=== PATIENT | female | born 1955 | race African-American/Black ===

== ENCOUNTER 2022-05-10 00:16 | Emergency (ER) | payer MEDICAID, OTHER ==
[~2022-05-10] VITALS: Ht 162.6 cm; Wt 77.0 kg
[~2022-05-10 00:16] MED LIST: DEXTL MT
[2022-05-10 03:12] LABS: BASOPHILS % 0.6 % (0.0-2.0); EOSINOPHILS % 3.9 % (0.0-5.0); HEMATOCRIT. 37.3 % (36.0-48.0); HEMOGLOBIN. 12.2 g/dL (12.0-16.0); LYMPHOCYTES % 24.7 % (20.0-50.0); MEAN CORPUSCULAR HEMOGLOBIN 29.4 pg (28.0-32.0); MEAN PLATELET VOLUME 9.2 fl (7.4-10.4); MONOCYTES % 13.6 % (2.0-8.0); NEUTROPHILS % 57.2 % (40.0-76.0); PLATELET 240 x1000/uL (130-400); RED BLOOD CELL COUNT 4.15 mill/uL (4.2-5.4); RED CELL DISTRIBUTION WIDTH 14.6 % (11.6-14.6)
[2022-05-10 03:15] LABS: CHLORIDE 106 mEq/L (98-107)
[2022-05-10 05:00] VITALS: BP 174/93
== END 2022-05-10 06:47 | disposition home or self-care (01) ==
LOC: ER 00:41
DX: R00.2 Palpitations (principal); F41.9 Anxiety disorder, unspecified; I10 Essential (primary) hypertension; E78.5 Hyperlipidemia, unspecified; Z88.2 Allergy status to sulfonamides
CPT/HCPCS: 36415; 80048; 84443; 84481; 84484; 85025; 99283

== ENCOUNTER 2022-11-17 05:39 | Emergency (ER) | payer MEDICARE, OTHER ==
[~2022-11-17] VITALS: Ht 167.6 cm; Wt 69.0 kg
[2022-11-17] MEDS ORDERED: MAGNESIUM/ALUMINUM HYDROXIDE/SIMETHICONE 30ML UDC PO ONE (07:15)
[2022-11-17] MEDS ORDERED: ONDANSETRON 4MG ODT PO ONE (07:15)
[2022-11-17] MEDS ORDERED: FAMOTIDINE 20MG TABLET PO ONE (07:15)
[2022-11-17 07:26] LABS: BASOPHILS % 0.6 % (0.0-2.0); EOSINOPHILS % 4.2 % (0.0-5.0); HEMATOCRIT. 38.4 % (36.0-48.0); HEMOGLOBIN. 12.9 g/dL (12.0-16.0); LYMPHOCYTES % 24.8 % (20.0-50.0); MEAN CORPUSCULAR HEMOGLOBIN 29.5 pg (28.0-32.0); MEAN CORPUSCULAR VOLUME 87.8 fL (81.0-99.0); MEAN PLATELET VOLUME 8.6 fl (7.4-10.4); MONOCYTES % 10.3 % (2.0-8.0); NEUTROPHILS % 60.1 % (40.0-76.0); PLATELET 260 x1000/uL (130-400); RED BLOOD CELL COUNT 4.37 mill/uL (4.2-5.4); RED CELL DISTRIBUTION WIDTH 14.9 % (11.6-14.6)
[2022-11-17 07:33] LABS: CHLORIDE 107 mEq/L (98-107)
[2022-11-17 09:49] VITALS: BP 123/76
== END 2022-11-17 09:50 | disposition home or self-care (01) ==
LOC: ER 05:39
DX: R10.13 Epigastric pain (principal); E78.00 Pure hypercholesterolemia, unspecified; I10 Essential (primary) hypertension; Z86.39 Personal history of other endocrine, nutritional and metabolic disease; Z88.6 Allergy status to analgesic agent; Z88.2 Allergy status to sulfonamides
CPT/HCPCS: 36415; 80053; 83690; 84484; 85025; 99284; Q0162